=== PATIENT | male | born 1975 | race Caucasian/White ===

== ENCOUNTER 2021-03-17 11:20 | Outpatient (REF) | payer OTHER, SELFPAY ==
--- NOTE | ~2021-03-17 | MR_ITS ---
EXAMINATION: MR BRAIN WITHOUT CONTRAST CLINICAL INFORMATION: Chronic daily headache. COMPARISON: CT head from 6 05/12/2014. TECHNIQUE: MRI of the brain was obtained using routine sequences without contrast. FINDINGS: No focal restricted diffusion is demonstrated to suggest acute or subacute cerebral ischemia. No evidence of acute or chronic hemorrhagic products on heme-sensitive imaging. Minimal nonspecific periventricular and deep white matter T2 FLAIR hyperintensities predominantly within the frontal lobes. The ventricles are normal in morphology and size. No abnormal mass effect. No midline shift. Normal appearance of the pituitary gland. Normal positioning of the cerebellar tonsils. Normal arterial and venous vascular flow voids are present. Normal, homogeneous marrow signal. Mild mucosal thickening of the paranasal sinuses. No signal abnormalities within the mastoids. MR/MR head/brain wo con IMPRESSION: 1. No acute intracranial abnormalities. 2. Mild nonspecific white matter changes.
== END 2021-03-17 11:21 | disposition home or self-care (01) ==
LOC: HO.MRI 11:20
PROVIDERS: PCP Internal Medicine; Visit Provider Psychiatry & Neurology Neurology
DX: R51.9 Headache, unspecified (principal)
CPT/HCPCS: 70551